=== PATIENT | female | born 1995 | race Caucasian/White ===

== ENCOUNTER 2020-05-14 08:00 | Inpatient (IN) ==
[2020-05-14] MEDS ORDERED: Famotidine 20 MG/2 ML VIAL IVP PRN (09:05)
[2020-05-14] MEDS ORDERED: Metoclopramide 10 MG/2 ML VIAL IVP PRN (09:05)
[2020-05-14] MEDS ORDERED: Naloxone 0.4 MG/ML INJ IVP PRN (09:05)
[2020-05-14] MEDS ORDERED: Ondansetron 4 MG/2 ML VIAL IVP PRN (09:05)
[2020-05-14] MEDS ORDERED: Oxytocin 20 units/ LR 1000 mL 20 UNIT/1,000 ML BAG IVC SCH (09:15)
[2020-05-14] MEDS ORDERED: D5% in Lactated Ringers 1,000 ML IVC SCH (09:15)
[2020-05-14] MEDS ORDERED: D5% in 0.45% NACL 1,000 ML IVC SCH (09:15)
[2020-05-14 09:28] LABS: Basophils % 0.3 %; Eosinophils # 0.1 K/mcL (0.0-0.6); Eosinophils % 0.7 %; Hematocrit 35.1 % (35.3-44.9); Hemoglobin 11.6 g/dL (11.5-15.4); Lymphocytes # 1.3 K/mcL (0.6-4.6); Lymphocytes % 11.6 %; Mean Corpuscular Hemoglobin 28.4 pg (28.0-33.3); Mean Platelet Volume 11.5 fL (9.4-12.4); Monocytes # 0.8 K/mcL (0.0-1.3); Monocytes % 7.1 %; Neutrophils # 8.6 K/mcL (1.6-8.9); Platelet Count 205 K/mcL (140-400); Red Blood Count 4.08 M/mcL (3.82-4.97); Segmented Neutrophils % 79.3 %; White Blood Count 10.9 K/mcL (4.3-11.1)
[2020-05-14 09:29] LABS: Amphetamine Screen,Urine Negative ng/mL (Cutoff=1000); Barbiturate Screen,Urine Negative ng/mL (Cutoff=200); Benzodiazepines Screen,Urine Negative ng/mL (Cutoff=200); Cannabinoid Screen,Urine Negative ng/mL (Cutoff = 50); Cocaine Screen,Urine Negative ng/mL (Cutoff= 300); Opiate Screen,Urine Negative ng/mL (Cutoff=300); Phencyclidine Screen,Urine Negative ng/mL (Cutoff=25)
[2020-05-14] MEDS: Ringers Solution, Lactated 1,000 ML ONE (09:34)
[2020-05-14] MEDS ORDERED: EPHEDrine 50 MG/ML VIAL IVP PRN (09:59)
[2020-05-14] MEDS ORDERED: Epidural Premix (fent/bupiv) 110 ML EP SCH (10:00)
[2020-05-14] MEDS ORDERED: Ropivacaine/PF 0.2% 20 ML VIAL ONE (19:40)
[2020-05-14] MEDS ORDERED: *HR* FentaNYL (PF) 100 MCG/2 ML VIAL ONE (19:40)
[2020-05-15] MEDS ORDERED: Ringers Solution, Lactated 1,000 ML ONE ×4 (03:05→12:00)
[2020-05-15] MEDS ORDERED: Azithromycin 500 MG in 0.9 % Sodium Chloride 250 ML IVPB SCH (10:00)
[2020-05-15] MEDS ORDERED: CeFAZolin 2,000 MG/50 ML BAG IVPB ONE (10:49)
[2020-05-15] MEDS ORDERED: Metoclopramide 10 MG/2 ML VIAL IVP ONE (10:49)
[2020-05-15] MEDS ORDERED: Famotidine 20 MG/2 ML VIAL IVP ONE (10:49)
[2020-05-15] MEDS ORDERED: Oxytocin 20 units/ LR 1000 mL 20 UNIT/1,000 ML BAG IVC SCH ×3 (11:00→15:43)
[2020-05-15] MEDS ORDERED: 0.9 % Sodium Chloride 1,000 ML IVC SCH (11:00)
[2020-05-15] MEDS: Ringers Solution, Lactated 1,000 ML ONE (11:24)
[2020-05-15] MEDS ORDERED: Lidocaine/EPI 1:200k 2% PF 20 ML VIAL ONE (11:51)
[2020-05-15] MEDS ORDERED: *HR* Oxytocin 10 UNIT/ML VIAL IM ONE ×2 (12:00→12:13)
[2020-05-15] MEDS ORDERED: EPHEDrine 50 MG/ML VIAL ONE (12:01)
[2020-05-15] MEDS ORDERED: Ondansetron 4 MG/2 ML VIAL ONE (12:02)
[2020-05-15] MEDS ORDERED: Dexamethasone 4 MG/ML VIAL ONE (12:02)
[2020-05-15] MEDS ORDERED: Acetaminophen IV 1,000 MG/100 ML INFUS..BTL ONE (12:02)
[2020-05-15] MEDS ORDERED: Ketorolac 30 MG/ML VIAL ONE (12:02)
[2020-05-15] MEDS ORDERED: Lidocaine -MPF 2% 5 ML VIAL ONE (12:26)
[2020-05-15] MEDS ORDERED: *HR* Morphine Sulfate/PF 10 MG/10 ML AMPUL ONE (12:43)
[2020-05-15] MEDS ORDERED: Azithromycin 500 MG in 0.9 % Sodium Chloride 250 ML IVPB ONE (14:34)
[2020-05-15] MEDS ORDERED: Sennosides 8.6 MG TABLET PO PRN (15:43)
[2020-05-15] MEDS ORDERED: Ringers Solution, Lactated 1,000 ML IVC SCH (15:43)
[2020-05-15] MEDS ORDERED: Rho Immune Globulin 1,500 UNIT SYRINGE IM ONE (15:43)
[2020-05-15] MEDS ORDERED: Ondansetron 4 MG/2 ML VIAL IVP PRN (15:43)
[2020-05-15] MEDS ORDERED: *HR* OxyCODONE Immed Rel 5 MG TABLET PO PRN (15:43)
[2020-05-15] MEDS ORDERED: Metoclopramide 10 MG/2 ML VIAL IVP PRN (15:43)
[2020-05-15] MEDS: Simethicone 80 MG TAB.CHEW PO PRN (17:27)
[2020-05-15] MEDS: Ibuprofen 600 MG TABLET PO SCH (17:27)
[2020-05-15] MEDS: *HR* OxyCODONE/APAP 5/325 TABLET PO PRN (19:51)
[2020-05-16] MEDS: Ibuprofen 600 MG TABLET PO SCH ×2 (00:14→06:34)
[2020-05-16] MEDS: Simethicone 80 MG TAB.CHEW PO PRN (00:15)
[2020-05-16] MEDS: *HR* OxyCODONE/APAP 5/325 TABLET PO PRN ×2 (04:45→13:24)
[2020-05-16 07:54] VITALS: BP 103/61
[2020-05-16 08:12] LABS: Basophils % 0.1 %; Eosinophils # 0.1 K/mcL (0.0-0.6); Eosinophils % 0.5 %; Hematocrit 25.9 % (35.3-44.9); Immature Granulocytes % 0.7 % (0-4); Lymphocytes # 1.2 K/mcL (0.6-4.6); Lymphocytes % 7.7 %; Mean Corpuscular HGB Conc 32.4 g/dL (31.6-35.5); Mean Corpuscular Hemoglobin 29.3 pg (28.0-33.3); Mean Corpuscular Volume 90.2 fL (83.0-100.0); Mean Platelet Volume 11.1 fL (9.4-12.4); Monocytes % 6.6 %; Neutrophils # 13.1 K/mcL (1.6-8.9); Platelet Count 153 K/mcL (140-400); Red Blood Count 2.87 M/mcL (3.82-4.97); Red Cell Distribution Width 14.5 % (11.5-14.5); Segmented Neutrophils % 84.4 %; White Blood Count 15.6 K/mcL (4.3-11.1)
[2020-05-16 08:18] LABS: Hemoglobin 8.4 g/dL (11.5-15.4)
[2020-05-16] MEDS ORDERED: FERROUS SULFATE PO SCH (09:00)
[2020-05-16] MEDS ORDERED: Prenatal Vit/FA 1 EACH TABLET PO SCH (09:00)
[2020-05-16] MEDS ORDERED: Rho Immune Globulin 1,500 UNIT SYRINGE IM ONE (10:14)
== END 2020-05-16 15:10 | disposition home or self-care (01) | DRG 788 ==
LOC: 1NENULAB 08:05 → 1NENUOBS 05-15 15:30
PROVIDERS: ADMIT Obstetrics & Gynecology; ATTEND Obstetrics & Gynecology